=== PATIENT | female | born 1945 | race Caucasian/White ===

== ENCOUNTER 2020-02-01 08:09 | Day surgery (SDC) | payer MEDICARE ==
--- NOTE | 2020-02-01 10:39 | NUR ---
PT STATES PAIN WRAPPING AROUND BACK AND WORSE IN LEFT LEG. STATES SHE CAME IN BEFORE PROCEDURE IN PAIN. STATED 10 PAIN, TAKES OXYCODONE 10 MG PRN AT HOME, REQUESTING PAIN MEDICATION. CALLED DR. LILIA TABOR RECIEVED ORDER FOR OXYCODONE. PT TOLERATING WATER AND CRACKERS WELL. BANDAIDE C/D/I TO LOWER BACK. ENCOURAGED PT TO DRINK FLUIDS, NO HEADACHE AT THIS TIME. CALL LIGHT IN REACH.
--- NOTE | 2020-02-01 11:45 | NUR ---
PT APPEARS MORE COMFORTABLE, BANDAIDE C/D/I. VSS. Discharged via wheelchair to private car for ride home.
--- NOTE | 2020-02-01 11:46 | NUR ---
Discharge instructions reviewed with patient. Patient verbalizes understanding. Copy given to patient to take home.
== END 2020-02-01 22:54 | disposition home or self-care (01) ==
LOC: RAD 08:09 → CT 10:00 → RAD 22:54
DX: M51.16 Intervertebral disc disorders with radiculopathy, lumbar region (principal); M43.20 Fusion of spine, site unspecified; M48.062 Spinal stenosis, lumbar region with neurogenic claudication
CPT/HCPCS: 62304; 72132; Q9966

== ENCOUNTER 2021-04-03 12:46 | Emergency (ER) | payer MEDICARE ==
[~2021-04-03] VITALS: Ht 154.9 cm; Wt 68.0 kg
[~2021-04-03 12:46] MED LIST: Percocet 5-3251 EACH PO
[2021-04-03 13:33] LABS: BASOPHILS ABSOLUTE AUTO 0.02 K/mm3 (0.00-0.23); BASOPHILS PERCENT AUTO 0 % (0-2); EOSINOPHILS ABSOLUTE AUTO 0.02 K/mm3 (0.00-0.68); EOSINOPHILS PERCENT AUTO 0 % (0-6); Hemoglobin 11.7 g/dL (11.5-16.0); IMMATURE GRAN ABSOLUTE AUTO 0.03 K/mm3 (0.00-0.10); IMMATURE GRAN PERCENT AUTO 0 % (0-1); LYMPHOCYTES ABSOLUTE AUTO 1.59 K/mm3 (0.84-5.20); LYMPHOCYTES PERCENT AUTO 23 % (21-46); MONOCYTES ABSOLUTE AUTO 0.37 K/mm3 (0.16-1.47); MONOCYTES PERCENT AUTO 5 % (4-13); Mean Corpuscular HGB 30.3 pg (26.0-34.0); Mean Corpuscular HGB Conc 34.4 g/dL (31.5-36.5); Mean Corpuscular Volume 88 fL (80-100); Mean Platelet Volume 10.3 fL (9.1-12.4); NEUTROPHILS ABSOLUTE AUTO 4.89 K/mm3 (1.96-9.15); NEUTROPHILS PERCENT AUTO 71 % (41-73); Platelet Count 297 K/mm3 (150-400); RDW Coefficient Variation 12.8 % (11.7-14.2); RDW Standard Deviation 41.1 fL (35.1-46.3); Red Blood Cell Count 3.86 M/mm3 (3.80-5.20); White Blood Cell Count 6.92 K/mm3 (4.00-11.30)
[2021-04-03 14:04] LABS: Alanine Aminotransfer (ALT/SGP 24 U/L (12-78); Albumin, Blood 3.9 g/dL (3.4-5.0); Albumin/Globulin Ratio 1.1 (0.8-1.8); Alk Phos 86 U/L (50-136); Anion Gap 6 mmol/L (6-16); Aspartate Aminotrans (AST/SGOT 13 U/L (12-37); Bilirubin, Total 0.6 mg/dL (0.1-1.0); Blood Urea Nitrogen 15 mg/dL (8-24); Bun/Creatinine Ratio 20.2 (12.0-20.0); CO2, Blood 25 mmol/L (21-32); Calcium, Blood 9.5 mg/dL (8.5-10.1); Chloride, Blood 105 mmol/L (98-108); Creatinine, Blood 0.74 mg/dL (0.40-1.00); Globulin, Blood 3.7 g/dL (2.2-4.0); Glomerular Filtration Rate >60 (60-); Glucose, Blood 133 mg/dL (70-99); Potassium, Blood 3.5 mmol/L (3.5-5.5); Sodium, Blood 136 mmol/L (136-145); Total Protein, Blood 7.6 g/dL (6.4-8.2); Troponin I <0.015 ng/mL (0.000-0.040)
[2021-04-03 14:29] LABS: International Normalized Ratio 0.99; Prothrombin Time Results 10.7 Sec (9.7-11.5)
[2021-04-03] MEDS ORDERED: TRAZ50 PO (14:40)
== END 2021-04-03 15:30 | disposition home or self-care (01) ==
LOC: ER 12:46
PROVIDERS: Emergency Medicine Emergency Medical Services
DX: S00.11XA Contusion of right eyelid and periocular area, initial encounter (principal); M25.511 Pain in right shoulder; M54.2 Cervicalgia; Z88.2 Allergy status to sulfonamides; Z88.6 Allergy status to analgesic agent; Z88.8 Allergy status to other drugs, medicaments and biological substances; W19.XXXA Unspecified fall, initial encounter
CPT/HCPCS: 36415; 70450; 70486; 72125; 73030; 80053; 83880; 84484; 85025; 85610; 93005; 93010; 96372; 99284-25; A9270; J1885

== ENCOUNTER 2021-05-26 14:13 | Emergency (ER) | payer MEDICARE ==
[~2021-05-26] VITALS: Ht 154.9 cm; Wt 59.0 kg
[~2021-05-26 14:13] MED LIST changes: +TRAZ50 PO
[2021-05-26 15:43] LABS: BASOPHILS ABSOLUTE AUTO 0.04 K/mm3 (0.00-0.23); BASOPHILS PERCENT AUTO 0 % (0-2); EOSINOPHILS ABSOLUTE AUTO 0.19 K/mm3 (0.00-0.68); EOSINOPHILS PERCENT AUTO 2 % (0-6); Hematocrit 32.3 % (33.0-51.0); Hemoglobin 11.6 g/dL (11.5-16.0); IMMATURE GRAN ABSOLUTE AUTO 0.05 K/mm3 (0.00-0.10); IMMATURE GRAN PERCENT AUTO 1 % (0-1); LYMPHOCYTES PERCENT AUTO 18 % (21-46); MONOCYTES ABSOLUTE AUTO 0.61 K/mm3 (0.16-1.47); MONOCYTES PERCENT AUTO 6 % (4-13); Mean Corpuscular HGB 30.8 pg (26.0-34.0); Mean Corpuscular HGB Conc 35.9 g/dL (31.5-36.5); Mean Corpuscular Volume 86 fL (80-100); Mean Platelet Volume 10.2 fL (9.1-12.4); NEUTROPHILS ABSOLUTE AUTO 7.15 K/mm3 (1.96-9.15); NEUTROPHILS PERCENT AUTO 73 % (41-73); Platelet Count 304 K/mm3 (150-400); RDW Coefficient Variation 12.8 % (11.7-14.2); RDW Standard Deviation 40.1 fL (35.1-46.3); Red Blood Cell Count 3.77 M/mm3 (3.80-5.20); White Blood Cell Count 9.74 K/mm3 (4.00-11.30)
[2021-05-26 17:14] LABS: Source, Urine Voided
[2021-05-26 17:21] LABS: Appearance, Urine Hazy (Clear); Bilirubin, Urine Neg (Neg); Blood, Urine 1+ (Neg); Color, Urine Yellow (P-Yellow); Glucose Qualitative, Urine Neg (Neg); Ketones, Urine Neg (Neg); Leukocyte Esterase, Urine 3+ (Neg); Nitrite, Urine Pos (Neg); Protein, Urine Neg (Neg); Specific Gravity, Urine 1.015 (1.003-1.022); Urobilinogen, Urine NORM (Normal)
[2021-05-26] MEDS ORDERED: Norco 5-325 Ta1 EACH PO (17:27)
[2021-05-26 17:34] LABS: White Blood Cells, Urine 50-100 /hpf (0-5)
[2021-05-26 17:35] LABS: Bacteria Many /hpf; Red Blood Cells, Urine 0-2 /hpf (0-2); Squamous Epithelial Cells Few /hpf (Few)
== END 2021-05-26 18:46 | disposition home or self-care (01) ==
LOC: ER 14:13
PROVIDERS: Emergency Medicine
DX: R10.9 Unspecified abdominal pain (principal); Z88.2 Allergy status to sulfonamides; Z88.8 Allergy status to other drugs, medicaments and biological substances
CPT/HCPCS: 71045; 74176; 81001; 85025; 87077; 87086; 87186; 93005; 93010; 96374; 96375; 99285-25; A9270; J2405; J3010

== ENCOUNTER 2021-07-07 22:09 | Inpatient (IN) | payer MEDICARE, OTHER ==
[~2021-07-07] VITALS: Ht 154.9 cm; Wt 63.5 kg
[~2021-07-07 22:09] MED LIST changes: +Norco 5-325 Ta1 EACH PO; -TRAZ50 PO
[2021-07-07 22:27] LABS: BASOPHILS ABSOLUTE AUTO 0.03 K/mm3 (0.00-0.23); BASOPHILS PERCENT AUTO 0 % (0-2); EOSINOPHILS PERCENT AUTO 0 % (0-6); Hematocrit 35.1 % (33.0-51.0); Hemoglobin 12.5 g/dL (11.5-16.0); IMMATURE GRAN ABSOLUTE AUTO 0.09 K/mm3 (0.00-0.10); IMMATURE GRAN PERCENT AUTO 1 % (0-1); LYMPHOCYTES ABSOLUTE AUTO 1.33 K/mm3 (0.84-5.20); LYMPHOCYTES PERCENT AUTO 8 % (21-46); MONOCYTES ABSOLUTE AUTO 1.74 K/mm3 (0.16-1.47); MONOCYTES PERCENT AUTO 10 % (4-13); Mean Corpuscular HGB 29.3 pg (26.0-34.0); Mean Corpuscular HGB Conc 35.6 g/dL (31.5-36.5); Mean Corpuscular Volume 82 fL (80-100); Mean Platelet Volume 9.3 fL (9.1-12.4); NEUTROPHILS ABSOLUTE AUTO 14.65 K/mm3 (1.96-9.15); NEUTROPHILS PERCENT AUTO 82 % (41-73); Platelet Count 247 K/mm3 (150-400); RDW Coefficient Variation 12.2 % (11.7-14.2); RDW Standard Deviation 37.3 fL (35.1-46.3); Red Blood Cell Count 4.26 M/mm3 (3.80-5.20); White Blood Cell Count 17.84 K/mm3 (4.00-11.30)
[2021-07-07 22:32] LABS: Source, Urine Catheter
[2021-07-07 22:47] LABS: Bilirubin, Urine Neg (Neg); Blood, Urine 4+ (Neg); Glucose Qualitative, Urine Neg (Neg); Ketones, Urine Neg (Neg); Leukocyte Esterase, Urine 3+ (Neg); Nitrite, Urine Neg (Neg); Protein, Urine 2+ (Neg); Specific Gravity, Urine 1.015 (1.003-1.022); Urobilinogen, Urine 1+ (Normal)
[2021-07-07 22:48] LABS: Alanine Aminotransfer (ALT/SGP 24 U/L (12-78); Albumin, Blood 3.4 g/dL (3.4-5.0); Albumin/Globulin Ratio 0.8 (0.8-1.8); Alk Phos 96 U/L (50-136); Anion Gap 9 mmol/L (6-16); Aspartate Aminotrans (AST/SGOT 26 U/L (12-37); Bilirubin, Total 1.3 mg/dL (0.1-1.0); Blood Urea Nitrogen 19 mg/dL (8-24); Bun/Creatinine Ratio 25.2 (12.0-20.0); CO2, Blood 24 mmol/L (21-32); Calcium, Blood 9.3 mg/dL (8.5-10.1); Chloride, Blood 102 mmol/L (98-108); Creatinine, Blood 0.75 mg/dL (0.40-1.00); Glomerular Filtration Rate >60 (60-); Glucose, Blood 129 mg/dL (70-99); Sodium, Blood 135 mmol/L (136-145); Total Protein, Blood 7.4 g/dL (6.4-8.2)
[2021-07-07 22:52] LABS: Appearance, Urine Hazy (Clear); Color, Urine Yellow (P-Yellow)
[2021-07-07 22:53] LABS: Bacteria Many /hpf; Red Blood Cells, Urine Rare /hpf (0-2); Squamous Epithelial Cells Not Seen /hpf (Few); White Blood Cells, Urine TNTC /hpf (0-5)
[2021-07-07 23:18] LABS: Influenza A, PCR NEGATIVE (NEGATIVE); Influenza B, PCR NEGATIVE (NEGATIVE); Resp Syncytial Virus, PCR NEGATIVE (NEGATIVE); SARS-Cov-2 (COVID-19) PCR, MMC NEGATIVE (NEGATIVE)
[2021-07-08] MEDS ORDERED: DOXEPIN HCL6 MG PO (02:52)
[2021-07-08] MEDS ORDERED: ESZOPICLONE3 MG PO (02:53)
[2021-07-08] MEDS ORDERED: OXYC10TA19 PO (02:53)
[2021-07-08] MEDS ORDERED: PANTOPRAZOLE SO40 M2 PO (02:53)
[2021-07-08] MEDS ORDERED: IMITREX100 MG PO (02:55)
[2021-07-08 05:40] LABS: BASOPHILS ABSOLUTE AUTO 0.02 K/mm3 (0.00-0.23); BASOPHILS PERCENT AUTO 0 % (0-2); EOSINOPHILS ABSOLUTE AUTO 0.02 K/mm3 (0.00-0.68); EOSINOPHILS PERCENT AUTO 0 % (0-6); Hematocrit 31.1 % (33.0-51.0); Hemoglobin 10.6 g/dL (11.5-16.0); IMMATURE GRAN ABSOLUTE AUTO 0.06 K/mm3 (0.00-0.10); IMMATURE GRAN PERCENT AUTO 1 % (0-1); LYMPHOCYTES ABSOLUTE AUTO 2.19 K/mm3 (0.84-5.20); LYMPHOCYTES PERCENT AUTO 18 % (21-46); MONOCYTES PERCENT AUTO 12 % (4-13); Mean Corpuscular HGB Conc 34.1 g/dL (31.5-36.5); Mean Corpuscular Volume 85 fL (80-100); Mean Platelet Volume 9.7 fL (9.1-12.4); NEUTROPHILS ABSOLUTE AUTO 8.44 K/mm3 (1.96-9.15); NEUTROPHILS PERCENT AUTO 70 % (41-73); Platelet Count 203 K/mm3 (150-400); RDW Coefficient Variation 12.2 % (11.7-14.2); RDW Standard Deviation 38.1 fL (35.1-46.3); Red Blood Cell Count 3.65 M/mm3 (3.80-5.20); White Blood Cell Count 12.13 K/mm3 (4.00-11.30)
[2021-07-08 06:24] LABS: Anion Gap 11 mmol/L (6-16); Blood Urea Nitrogen 20 mg/dL (8-24); Bun/Creatinine Ratio 25.7 (12.0-20.0); CO2, Blood 21 mmol/L (21-32); Calcium, Blood 8.2 mg/dL (8.5-10.1); Chloride, Blood 106 mmol/L (98-108); Creatinine, Blood 0.78 mg/dL (0.40-1.00); Glomerular Filtration Rate >60 (60-); Glucose, Blood 115 mg/dL (70-99); Potassium, Blood 4.1 mmol/L (3.5-5.5); Sodium, Blood 138 mmol/L (136-145)
[2021-07-08] MEDS ORDERED: OXYB5 PO (16:06)
--- NOTE | 2021-07-09 04:03 | NUR ---
SHIFT SUMMARY A/OX3, FORGETFUL AT TIMES. C/O MODERATE PAIN TO R. SHOULDER, MEDICATED PER EMAR. 1 ASSIST TO BATHROOM. VSS, NO ACUTE CHANGES AT THIS TIME. BED IN LOWEST POSITION WITH CALL LIGHT IN REACH. WILL CONTINUE TO MONITOR AND REPORT TO ONCOMING RN.
[2021-07-09 04:49] LABS: BASOPHILS ABSOLUTE AUTO 0.02 K/mm3 (0.00-0.23); BASOPHILS PERCENT AUTO 0 % (0-2); EOSINOPHILS ABSOLUTE AUTO 0.13 K/mm3 (0.00-0.68); EOSINOPHILS PERCENT AUTO 2 % (0-6); Hematocrit 27.9 % (33.0-51.0); Hemoglobin 9.4 g/dL (11.5-16.0); IMMATURE GRAN ABSOLUTE AUTO 0.02 K/mm3 (0.00-0.10); IMMATURE GRAN PERCENT AUTO 0 % (0-1); LYMPHOCYTES ABSOLUTE AUTO 1.74 K/mm3 (0.84-5.20); LYMPHOCYTES PERCENT AUTO 22 % (21-46); MONOCYTES ABSOLUTE AUTO 0.62 K/mm3 (0.16-1.47); MONOCYTES PERCENT AUTO 8 % (4-13); Mean Corpuscular HGB 28.7 pg (26.0-34.0); Mean Corpuscular HGB Conc 33.7 g/dL (31.5-36.5); Mean Corpuscular Volume 85 fL (80-100); Mean Platelet Volume 9.6 fL (9.1-12.4); NEUTROPHILS ABSOLUTE AUTO 5.25 K/mm3 (1.96-9.15); NEUTROPHILS PERCENT AUTO 67 % (41-73); Platelet Count 197 K/mm3 (150-400); RDW Coefficient Variation 12.4 % (11.7-14.2); RDW Standard Deviation 38.3 fL (35.1-46.3); Red Blood Cell Count 3.28 M/mm3 (3.80-5.20); White Blood Cell Count 7.78 K/mm3 (4.00-11.30)
[2021-07-09 05:55] LABS: Anion Gap 8 mmol/L (6-16); Blood Urea Nitrogen 13 mg/dL (8-24); Bun/Creatinine Ratio 20.1 (12.0-20.0); CO2, Blood 24 mmol/L (21-32); Calcium, Blood 8.6 mg/dL (8.5-10.1); Chloride, Blood 109 mmol/L (98-108); Creatinine, Blood 0.65 mg/dL (0.40-1.00); Glomerular Filtration Rate >60 (60-); Glucose, Blood 96 mg/dL (70-99); Sodium, Blood 141 mmol/L (136-145)
--- NOTE | 2021-07-09 16:02 | NUR ---
Upon receiving a spiritual care referral, I visit patient. Patient immediately tells me about the recent of her spouse last March and the complications associated to his life and . She also discusses her estrangement from her 4 grown children that live in [place], [place]. She shares her fears of losing her housing and insurance and what her hospital bills will be. She speaks about her [employer] heavenly and how she has leaned on her prayers and connection to God through her challenging times. I assure her that He will be with her now. We talk about options and resources that are available. I encourage self-care, reinforce helpful attitudes and practices and provide therapeutic listening, grief support, gentle adolescent counselor and prayer. Patient responds well and with tears expresses gratitude for the visit and the encouragement that she gained from it. I will continue to remain available.
--- NOTE | 2021-07-09 17:17 | NUR ---
PATIENT A/OX4, UP WITH SBA AND GAIT BELT. R SHOULDER PAIN PERSISTS, BUT PATIENT REPORTS IT HAS IMPROVED SINCE YESTERDAY. DR. SKINNER IN TO SEE PATIENT THIS EVENING. R SHOULDER SWOLLEN AND PATIENT HAS LIMITED MOBILITY DUE TO PAIN. 20G IV TO R FA WNL AND SL. ROCEPHIN ORDERED TO TREAT UTI. PATIENT IN BETTER SPIRITS THIS EVENING AFTER SPEAKING WITH CHAPLAIN CORETTA. TOLERATING CARDIAC DIET. VSS, ON RA. CALL APPROPRIATELY FOR ASSISTANCE.
[2021-07-09 21:44] LABS: BODY FLUID RBC 0.022 M/mm3 (0-0); RBC Count, Synovial Fluid 22000 /mm3 (0-0)
[2021-07-09 21:45] LABS: WBC Count, Synovial Fluid 14508 /mm3 (0-180)
[2021-07-09 21:47] LABS: Appearance, Synovial Fluid Cloudy (Clear); Color, Synovial Fluid Brown (None-P Yel)
[2021-07-10] LABS: Lymphs, Synovial Fluid 4 % (0-15); Monocytes/Macrophages, Synovia 16 % (0-65); Neutrophils, Synovial Fluid 80 % (0-24)
[2021-07-10 01:05] LABS: Body Fluid Crystals POS (NEGATIVE)
--- NOTE | 2021-07-10 03:30 | NUR ---
SHIFT SUMMARY A/OX3, FORGETFUL AT TIMES. C/O 03/05 PAIN TO R. SHOULDER, MEDICATED PER EMAR. DR. SKINNER AT BEDSIDE THIS SHIFT FOR SHOULDER ASPIRATION, FLUID SENT TO LAB. NPO SINCE MIDNIGHT. VSS, NO ACUTE CHANGES AT THIS TIME. BED IN LOWEST POSITION WITH CALL LIGHT IN REACH. WILL CONTINUE TO MONITOR AND REPORT TO ONCOMING RN.
[2021-07-10] MEDS ORDERED: TRAZ100 PO (15:32)
--- NOTE | 2021-07-10 18:23 | NUR ---
PATIENT A/OX4, UP WITH SBA TO RESTROOM. NPO AFTER BREAKFAST TODAY DUE TO POSSIBLE SURGERY. DR. SKINNER CAME BY THIS EVENING AND SAID PATIENT COULD EAT DINNER AND HAVE HER NPO AT MIDNIGHT FOR POSSIBLE SURGERY TOMORROW. PAIN BETTER CONTROLLED TODAY WITH OXYCODONE, TYLENOL AND LIDOCAINE PATCH. DRESSING TO R SHOULDER REMAINS C/D/I. PATIENT HAS MANY CONCERNS ABOUT DISCHARGE DUE TO FINANICAL PROBLEMS AND THE PASSING OF HER IN . 20G IV TO R FA WNL AND SL. CALM AND COOPERATIVE WITH CARE THIS SHIFT.
--- NOTE | 2021-07-11 04:22 | NUR ---
WALL ATTENDANT SUMMARY PATIENT HAD A FAIR SHIFT. HAD HER PAIN MEDICATION, HER ANXIETY MED. VITALS ARE STABLE. NO OTHER COMPLAINTS LODGED. EILL CONTINUE TO MONITOR HER.
[2021-07-11 05:48] LABS: BASOPHILS ABSOLUTE AUTO 0.03 K/mm3 (0.00-0.23); BASOPHILS PERCENT AUTO 1 % (0-2); EOSINOPHILS ABSOLUTE AUTO 0.09 K/mm3 (0.00-0.68); EOSINOPHILS PERCENT AUTO 2 % (0-6); Hematocrit 30.5 % (33.0-51.0); Hemoglobin 10.1 g/dL (11.5-16.0); IMMATURE GRAN ABSOLUTE AUTO 0.03 K/mm3 (0.00-0.10); IMMATURE GRAN PERCENT AUTO 1 % (0-1); LYMPHOCYTES ABSOLUTE AUTO 1.47 K/mm3 (0.84-5.20); LYMPHOCYTES PERCENT AUTO 27 % (21-46); MONOCYTES ABSOLUTE AUTO 0.41 K/mm3 (0.16-1.47); MONOCYTES PERCENT AUTO 8 % (4-13); Mean Corpuscular HGB 28.2 pg (26.0-34.0); Mean Corpuscular HGB Conc 33.1 g/dL (31.5-36.5); Mean Corpuscular Volume 85 fL (80-100); Mean Platelet Volume 9.5 fL (9.1-12.4); NEUTROPHILS ABSOLUTE AUTO 3.36 K/mm3 (1.96-9.15); NEUTROPHILS PERCENT AUTO 62 % (41-73); Platelet Count 286 K/mm3 (150-400); RDW Standard Deviation 37.5 fL (35.1-46.3); Red Blood Cell Count 3.58 M/mm3 (3.80-5.20); White Blood Cell Count 5.39 K/mm3 (4.00-11.30)
[2021-07-11 07:03] LABS: Anion Gap 6 mmol/L (6-16); Blood Urea Nitrogen 12 mg/dL (8-24); Bun/Creatinine Ratio 19.8 (12.0-20.0); CO2, Blood 27 mmol/L (21-32); Calcium, Blood 9.2 mg/dL (8.5-10.1); Chloride, Blood 108 mmol/L (98-108); Creatinine, Blood 0.61 mg/dL (0.40-1.00); Glomerular Filtration Rate >60 (60-); Glucose, Blood 95 mg/dL (70-99); Potassium, Blood 4.1 mmol/L (3.5-5.5); Sodium, Blood 141 mmol/L (136-145)
--- NOTE | 2021-07-11 16:41 | NUR ---
PATIENT IS ALERT AND ORIENTED AND COOPERATIVE WITH CARE. PATIENT IS TO BE NPO AT OO:00 FOR POTENTIAL I&D TOMORROW WITH DR. SKINNER. PATIENT IS IMPULSIVE AND WILL GET OUT OF BED OR CHAIR TO WALK TO THE BATHROOM WITHOUT ASSISTANCE. BED AND CHAIR ALARM ARE IN PLACE. RIGHT SHOULDER PAIN MEDICATED PER EMAR. THE PATIENT'S HEALTHCARE ADVOCATE WITH [facility], [place], SAID SHE CAN GIVE THE PATIENT A RIDE HOME UPON DISCHARGE. HER PHONE NUMBER IS . WILL CONTINUE TO MONITOR
--- NOTE | 2021-07-12 04:32 | NUR ---
POURED PIPE MAKER SUMMARY PATIENT HAD A FAIR SHIFT. VERY PLEASANT, HAD HER PAIN MED NEEDED. HER V/S WERE STABLE. WILL CONTINUE TO MONITOR HER.
[2021-07-12 05:35] LABS: BASOPHILS ABSOLUTE AUTO 0.04 K/mm3 (0.00-0.23); BASOPHILS PERCENT AUTO 1 % (0-2); EOSINOPHILS ABSOLUTE AUTO 0.11 K/mm3 (0.00-0.68); EOSINOPHILS PERCENT AUTO 2 % (0-6); Hematocrit 32.4 % (33.0-51.0); Hemoglobin 10.9 g/dL (11.5-16.0); IMMATURE GRAN ABSOLUTE AUTO 0.02 K/mm3 (0.00-0.10); IMMATURE GRAN PERCENT AUTO 0 % (0-1); LYMPHOCYTES ABSOLUTE AUTO 2.11 K/mm3 (0.84-5.20); LYMPHOCYTES PERCENT AUTO 32 % (21-46); MONOCYTES ABSOLUTE AUTO 0.47 K/mm3 (0.16-1.47); MONOCYTES PERCENT AUTO 7 % (4-13); Mean Corpuscular HGB 28.5 pg (26.0-34.0); Mean Corpuscular HGB Conc 33.6 g/dL (31.5-36.5); Mean Corpuscular Volume 85 fL (80-100); Mean Platelet Volume 9.1 fL (9.1-12.4); NEUTROPHILS ABSOLUTE AUTO 3.78 K/mm3 (1.96-9.15); NEUTROPHILS PERCENT AUTO 58 % (41-73); Platelet Count 325 K/mm3 (150-400); RDW Coefficient Variation 12.2 % (11.7-14.2); RDW Standard Deviation 37.6 fL (35.1-46.3); Red Blood Cell Count 3.82 M/mm3 (3.80-5.20); White Blood Cell Count 6.53 K/mm3 (4.00-11.30)
[2021-07-12 06:46] LABS: Anion Gap 9 mmol/L (6-16); Blood Urea Nitrogen 14 mg/dL (8-24); Bun/Creatinine Ratio 20.6 (12.0-20.0); CO2, Blood 26 mmol/L (21-32); Calcium, Blood 9.4 mg/dL (8.5-10.1); Chloride, Blood 108 mmol/L (98-108); Creatinine, Blood 0.68 mg/dL (0.40-1.00); Glomerular Filtration Rate >60 (60-); Glucose, Blood 97 mg/dL (70-99); Potassium, Blood 4.2 mmol/L (3.5-5.5); Sodium, Blood 143 mmol/L (136-145)
[2021-07-12] MEDS ORDERED: VISBIOME 112.51 EACH PO (13:21)
--- NOTE | 2021-07-12 14:58 | NUR ---
PATIENT DISCHARGED AT [id number]
== END 2021-07-12 14:53 | disposition home health service (06) | DRG 872 ==
LOC: ER 22:09 → ERHOLD 07-08 02:55 → MEDS 07-08 02:55
PROVIDERS: Emergency Medicine; Family Medicine; Orthopaedic Surgery; Student in an Organized Health Care Education/Training Program; ADMIT Family Medicine
PROC: 0R9J3ZX Drainage of Right Shoulder Joint, Percutaneous Approach, Diagnostic (ICD-10-PCS; principal; 2021-07-10)
DX: A41.51 Sepsis due to Escherichia coli [E. coli] (principal); N39.0 Urinary tract infection, site not specified; N12 Tubulo-interstitial nephritis, not specified as acute or chronic; E87.1 Hypo-osmolality and hyponatremia; F41.9 Anxiety disorder, unspecified; Z20.822 Contact with and (suspected) exposure to COVID-19; M19.011 Primary osteoarthritis, right shoulder; I95.9 Hypotension, unspecified; M67.411 Ganglion, right shoulder; F32.A Depression, unspecified; F43.21 Adjustment disorder with depressed mood; S43.111A Subluxation of right acromioclavicular joint, initial encounter; W18.30XA Fall on same level, unspecified, initial encounter; Z88.2 Allergy status to sulfonamides; Z88.6 Allergy status to analgesic agent; Z88.8 Allergy status to other drugs, medicaments and biological substances; Z90.710 Acquired absence of both cervix and uterus; Z98.890 Other specified postprocedural states; Z28.21 Immunization not carried out because of patient refusal
CPT/HCPCS: 0241U; 36415; 71045; 73030; 73201; 80048; 80053; 81001; 83605; 85025; 87040; 87070; 87075; 87077; 87086; 87186; 87205; 89051; 89060; 93005; 93010; 96365; 96375; 97110; 97162; 97166; 97535; 99285-25; A9270; J0696; J1650; J1885; J3370; J7030; J7050; J7120; P9612; Q9967

== ENCOUNTER 2021-09-12 17:07 | Emergency (ER) | payer MEDICARE, OTHER ==
[~2021-09-12] VITALS: Ht 154.9 cm; Wt 59.4 kg
[~2021-09-12 17:07] MED LIST changes: +DOXEPIN HCL6 MG PO; +ESZOPICLONE3 MG PO; +IMITREX100 MG PO; +OXYB5 PO; +OXYC10TA19 PO; +PANTOPRAZOLE SO40 M2 PO; +TRAZ100 PO; +VISBIOME 112.51 EACH PO
[2021-09-12] MEDS ORDERED: HYDROCODONE-AC1 EA10 PO (18:56)
== END 2021-09-12 19:37 | disposition home or self-care (01) ==
LOC: ER 17:07
DX: S82.65XA Nondisplaced fracture of lateral malleolus of left fibula, initial encounter for closed fracture (principal); W18.30XA Fall on same level, unspecified, initial encounter; Z88.2 Allergy status to sulfonamides; Z88.8 Allergy status to other drugs, medicaments and biological substances; Z88.6 Allergy status to analgesic agent; Z79.899 Other long term (current) drug therapy
CPT/HCPCS: 29515; 73610; 99283-25; A9270

== ENCOUNTER → 2022-02-06 | Outpatient (CLI) | payer MEDICARE, OTHER ==
[~2022-02-06] MED LIST changes: +HYDROCODONE-AC1 EA10 PO
== END | disposition home or self-care (01) ==
LOC: LAB 10:15 → LAB SHORT 10:15
DX: R53.1 Weakness (principal)
CPT/HCPCS: 87077; 87086; 87186

== ENCOUNTER 2023-08-23 11:29 | Emergency (ER) | payer MEDICARE, OTHER ==
[~2023-08-23] VITALS: Ht 152.4 cm; Wt 49.9 kg
[~2023-08-23 11:29] MED LIST changes: +PROM25 PO
[2023-08-23 11:36] VITALS: BP 121/96
[2023-08-23] MEDS ORDERED: OXYC10ER PO ×2 (11:48→14:57)
== END 2023-08-23 11:51 | disposition home or self-care (01) ==
LOC: ER 11:29
DX: M25.561 Pain in right knee (principal); G89.29 Other chronic pain; Z79.899 Other long term (current) drug therapy; Z88.2 Allergy status to sulfonamides; Z88.6 Allergy status to analgesic agent; Z88.5 Allergy status to narcotic agent; Z88.8 Allergy status to other drugs, medicaments and biological substances
CPT/HCPCS: 99283-25; A9270

== ENCOUNTER → 2024-09-29 | Outpatient (CLI) | payer MEDICARE, OTHER ==
[~2024-09-29] MED LIST changes: +OXYC10ER PO
== END | disposition home or self-care (01) ==
LOC: LAB SHORT 07:57 → PLD 07:57
DX: L98.8 Other specified disorders of the skin and subcutaneous tissue (principal)
CPT/HCPCS: 88305; 88312

== ENCOUNTER → 2025-06-07 | Outpatient (CLI) | payer MEDICARE, OTHER | LOC: LAB SHORT 11:40 → LAB 11:40 | DX: R30.0 Dysuria (principal) | CPT/HCPCS: 87077; 87086; 87186 ==